=== PATIENT | female | born 1960 | race Caucasian/White ===

== ENCOUNTER → 2017-03-24 | Outpatient (CLI) | payer BC ==
--- NOTE | 2017-03-26 08:55 | MM ---
Reason for exam: screening (asymptomatic). Last mammogram was performed 8 years and 2 months ago. History: Family history of breast cancer in 2 grandmothers. Physical Findings: A clinical breast exam by your physician is recommended on an annual basis and results should be correlated with mammographic findings. MG Screening Mammo w CAD Bilateral CC and MLO view(s) were taken. Prior study comparison: February 03, 2009, bilateral digital screening mammogram. There are scattered fibroglandular densities. No suspicious abnormality. ASSESSMENT: Negative, BI-RAD 1 RECOMMENDATION: Routine screening mammogram of both breasts in 1 year.
== END | disposition home or self-care (01) ==
LOC: RADMAMWWP 13:25
PROVIDERS: ATTEND Family Medicine
DX: Z12.31 Encounter for screening mammogram for malignant neoplasm of breast (principal)

== ENCOUNTER → 2017-05-29 | Outpatient (CLI) | payer BC ==
--- NOTE | 2017-05-29 08:28 | CT ---
EXAMINATION TYPE: CT sinus wo con DATE OF EXAM: 05/29/2017 COMPARISON: 05/28/2013 HISTORY: Atypical facial pain CT DLP: 605.[address] of the paranasal sinuses was performed in the axial and coronal planes. Bone and soft tissue settings are submitted. There is complete opacification of the paranasal sinuses throughout unchanged from prior examination although there is now involvement of the sphenoid sinus. There is thinning of the osseous structures noted. I cannot exclude underlying polyposis. A complete obstruction of the bilateral ostiomeatal uni ts noted. Nasal septum is mildly deviated from left to right. IMPRESSION: Severe pansinusitis as discussed above. Underlying polyposis is not excluded.
== END ==
LOC: RADCTMAIN 07:30
PROVIDERS: ATTEND Family Medicine
DX: J32.4 Chronic pansinusitis (principal)
CPT/HCPCS: 70486

== ENCOUNTER 2017-07-30 08:16 | Day surgery (SDC) | payer BC ==
[2017-07-28 10:02] VITALS: BMI 36.1
[~2017-07-30 08:16] MED LIST: CLINDAMYCIN 600 MG in DEXTROSE 5% IN WATER 50 ML IVPB ONE; DEXAMETHASONE SOD PHOSPHATE 10 MG/ML 1 ML VIAL IV ONE; DEXAMETHASONE SOD PHOSPHATE 4 MG/ML 1 ML VIAL IV ONE; FAMOTIDINE 20 MG/2 ML VIAL IV ONE; LACTATED RINGERS 1,000 ML IV SCH; MORPHINE SULFATE 4 MG/ML SYRINGE IV PRN; ONDANSETRON 4 MG/2 ML VIAL IVP ONE
[2017-07-30 09:35] VITALS: RESP 16
[2017-07-30] MEDS: OXYMETAZOLINE 0.05% NASL SPRAY 1 SPRAY BOTTLE NASAL ONE ×3 (09:45→09:55)
[2017-07-30] MEDS ORDERED: LIDOCAINE 1% 20 ML VIAL (10MG/ML) FOR IV START INTRADERMA ONE (09:57)
[2017-07-30 10:05] LABS: Glucose,Whole Blood 114 mg/dL (75-99)
[2017-07-30] MEDS ORDERED: LIDOCAINE 1% INJ 10MG/ML (20 ML MDV) ONE (10:08)
[2017-07-30] MEDS ORDERED: NEOSTIGMINE 1 MG/ML 10 ML VIAL ONE (10:08)
[2017-07-30] MEDS ORDERED: GLYCOPYRROLATE 0.2 MG/ML 2 ML VIAL ONE (10:08)
[2017-07-30] MEDS ORDERED: PROPOFOL 10 MG/ML 20 ML VIAL IV ONE (10:08)
[2017-07-30] MEDS ORDERED: DEXAMETHASONE SOD PHOS (MDV) 100 MG/10 ML VIAL ONE (10:08)
[2017-07-30] MEDS ORDERED: ROCURONIUM BROMIDE 10 MG/ML 10 ML VIAL IV ONE (10:08)
[2017-07-30] MEDS ORDERED: fentaNYL (PF) 50 MCG/ML 2 ML AMP ONE (10:08)
[2017-07-30] MEDS ORDERED: MIDAZOLAM 2 MG/2 ML VIAL ONE (10:08)
[2017-07-30] MEDS ORDERED: CLINDAMYCIN 150 MG/ML 4 ML VIAL IVPB ONE (10:24)
[2017-07-30] MEDS ORDERED: LIDOCAINE 1%-EPI 1:100,000 20 ML VIAL SUBMUCOSAL ONE (10:34)
[2017-07-30] MEDS ORDERED: OXYMETAZOLINE 0.05% NASL SPRAY 1 SPRAY BOTTLE MISCELLANE ONE (10:51)
--- NOTE | 2017-07-30 11:24 | P.OP ---
Date of Procedure: 07/30/17 Preoperative Diagnosis: Deviated nasal septum Inferior turbinate hypertrophy Chronic sinusitis Sinonasal polyposis Postoperative Diagnosis: Same Procedure(s) Performed: Septoplasty Outfracture and submucous resection inferior turbinates Bilateral endoscopic sinus surgery with polypectomy including bilateral maxillary antrostomy with removal of tissue from the maxillary sinuses, bilateral anterior and posterior ethmoidectomy, bilateral frontal and sphenoid sinusotomy with removal of tissue from the frontal and sphenoid sinuses Anesthesia: OTTONIEL Surgeon: Darren Benjamin Estimated Blood Loss (ml): 20 Pathology: other (Nasal septal bone and cartilage and sinus contents) Condition: stable Disposition: PACU Indications for Procedure: This is a 56-year-old white female with chronic nasal airway obstruction and congestion as well as chronic sinusitis. She has notable deviated nasal septum and inferior turbinate hypertrophy and sinonasal polyps on physical exam as well as chronic pansinusitis on computed tomography scan. Operative Findings: Nasal septum deviated to the right, inferior turbinate hypertrophy bilaterally, sinonasal polyps mainly in the middle meatus but also throughout the ethmoid sinuses and maxillary sinuses. Also smaller polyps in the sphenoid and frontal sinuses. There was also some purulence in the maxillary sinuses bilaterally Description of Procedure: The patient was brought in the operative suite and placed in a supine position. The patient underwent induction of general anesthesia with oral endotracheal intubation without difficulty. The patient was prepped and draped in usual aseptic fashion with the orbits in the operating field for monitoring throughout the case and the computed tomography scan on the computer screen throughout the case for review. 1% lidocaine with 1 100,000 epinephrine was infused submucosally both sides nasal septum as well as lateral nasal wall bilaterally and within the polyps themselves. While this was taking vasoconstrictive effect the inferior turbinates were infractured with the Mcmullen elevator partial submucous resection of inferior turbinates was performed with Coblation wand thus ablating a portion of the submucosal soft tissue. These were then outfractured with the Mcmullen elevator. A left hemitransfixion incision was then made with the mucoperichondrial and mucoperiosteal flaps. The bony cartilaginous junction was disarticulated and the mucoperiosteal flap on the right was elevated. Bony nasal septal deformities were removed Chelsy forceps. An inferior cartilaginous strip was removed leaving a full 1.5 cm caudal strut. Checking intranasally this corrected the nasoseptal deformities and the hemitransfixion incision was closed with a running 4-0 chromic suture. Full 0 endoscopic examination was performed bilaterally. There were quite large polyps bilaterally with inflammation. Beginning on the left the polyps were debrided from the nasal cavities and middle meatus with the microdebrider. There was quite a lot of oozing with this possibly her history of Plavix use although she was apparently off of this for 1 week. The polyps were debrided and maxillary ostium was located with a ballpoint probe. Infundibulotomy was performed followed by uncinectomy. There was some mild purulence as well as small polyps in the middle meatus bilaterally they were removed with curved suctioning and giraffe forceps. Anterior and posterior ethmoidectomy was performed with microdebrider. Due to the oozing some small polyps were left due to decreased visualization. Frontal and sphenoid osteotomies were able to be performed with removal of small polyps also. Standard nasal pore nasal dressing was then placed immediately. Attention was then turned to the right where the procedures were followed as they were on the left including infundibulotomy uncinectomy and maxillary antrostomy with removal of tissue from the maxillary sinuses anterior posterior ethmoidectomy with polypectomy and frontal and sphenoid sinusotomy with removal of tissue and exploration. Again standard nasal pore nasal dressing was placed. Firm nasal pore nasal dressing was then placed in the nasal cavities bilaterally for septal stenting and hemostasis. Good hemostasis was noted at this point. The patient was then allowed to emerge from general anesthesia having tolerated procedure well was extubated in the operating suite and transferred to postop recovery area in satisfactory condition.
[2017-07-30 11:33] VITALS: TEMP 97
[2017-07-30] MEDS: fentaNYL (PF) 50 MCG/ML 2 ML AMP IVP ONE ×2 (11:55→12:00)
[2017-07-30 13:33] VITALS: BP 147/71; PULSE 61
== END 2017-07-30 13:41 | disposition home or self-care (01) ==
LOC: OR 08:16
PROVIDERS: ATTEND Otolaryngology
DX: J34.2 Deviated nasal septum (principal); J34.3 Hypertrophy of nasal turbinates; J32.4 Chronic pansinusitis; J33.8 Other polyp of sinus; K21.9 Gastro-esophageal reflux disease without esophagitis; E78.00 Pure hypercholesterolemia, unspecified; E78.2 Mixed hyperlipidemia; I10 Essential (primary) hypertension; G83.9 Paralytic syndrome, unspecified; E03.9 Hypothyroidism, unspecified; Z86.73 Personal history of transient ischemic attack (TIA), and cerebral infarction without residual deficits; F17.210 Nicotine dependence, cigarettes, uncomplicated; E66.9 Obesity, unspecified; Z68.36 Body mass index [BMI] 36.0-36.9, adult; I65.22 Occlusion and stenosis of left carotid artery; G89.29 Other chronic pain; M54.5 Low back pain; I78.1 Nevus, non-neoplastic; Z79.82 Long term (current) use of aspirin; Z79.2 Long term (current) use of antibiotics; Z79.02 Long term (current) use of antithrombotics/antiplatelets; Z79.1 Long term (current) use of non-steroidal anti-inflammatories (NSAID); Z88.5 Allergy status to narcotic agent; Z79.891 Long term (current) use of opiate analgesic; Z79.51 Long term (current) use of inhaled steroids; Z79.52 Long term (current) use of systemic steroids; Z79.899 Other long term (current) drug therapy; Z88.0 Allergy status to penicillin; Z88.2 Allergy status to sulfonamides
CPT/HCPCS: 88305; 88300; 30520; 30140; 31267; 31253; 31259; J2250; J1100 ×2; J2710; J2405; J2001; J3010; J2704

== ENCOUNTER → 2018-08-17 | Outpatient (CLI) | payer BC ==
--- NOTE | 2018-08-17 15:25 | XR ---
EXAMINATION TYPE: XR foot complete LT DATE OF EXAM: 08/17/2018 COMPARISON: NONE HISTORY: 57 year-old female left foot pain TECHNIQUE: 3 views FINDINGS: Mild degenerative change at the first MTP joint. No acute fracture, subluxation, or dislocation seen small plantar calcaneal spur. IMPRESSION: Mild first MTP joint OA and small plantar calcaneal spur. No acute osseous abnormality seen.
== END | disposition home or self-care (01) ==
LOC: RADXRYALE 10:18
PROVIDERS: ATTEND Family Medicine
DX: M19.072 Primary osteoarthritis, left ankle and foot (principal); M77.32 Calcaneal spur, left foot

== ENCOUNTER 2019-07-13 21:48 | Emergency (ER) | payer BC ==
[2019-07-13 22:18] VITALS: TEMP 98
--- NOTE | 2019-07-13 23:13 | ED ---
Abdominal Pain HPI - General Chief Complaint: Abdominal Pain Stated Complaint: L Side Back/Abd Pain Time Seen by Provider: 07/13/19 22:46 Source: patient Mode of arrival: ambulatory Limitations: no limitations - History of Present Illness Complaint: abdominal pain Onset/Timin -: days(s) Location: diffuse Radiation: L flank Migration to: no migration Severity: moderate Quality: aching Consistency: constant Improves With: nothing Worsens With: nothing Associated Symptoms: denies other symptoms - Related Data Home Medications Medication Instructions Recorded Confirmed Allopurinol [Zyloprim] 100 mg PO DAILY 07/28/17 07/30/17 Aspirin [Adult Low Dose Aspirin EC] 81 mg PO DAILY 07/28/17 07/28/17 Clopidogrel [Plavix] 75 mg PO DAILY 07/28/17 07/28/17 Eye Drop 1 drop RIGHT EYE DAILY 07/28/17 07/30/17 Gabapentin [Neurontin] 1,200 mg PO TID 07/28/17 07/30/17 Levothyroxine Sodium [Synthroid] 150 mcg PO QAM 07/28/17 07/28/17 Nadolol [Corgard] 20 mg PO BID 07/28/17 07/28/17 Potassium ( 20 meq PO DAILY 07/28/17 07/30/17 Simvastatin 80 mg PO DAILY 07/28/17 07/30/17 Torsemide [Demadex] 20 mg PO TID 07/28/17 07/30/17 hydrOXYzine HCL 12.5 - 25 mg PO BID PRN 07/28/17 07/30/17 oxyCODONE-APAP 10-325MG [Percocet 1 - 2 tab PO Q4-6H PRN 07/28/17 07/28/17 10-325 mg] predniSONE [Deltasone] 20 mg PO DAILY 07/28/17 07/28/17 Previous Rx's Medication Instructions Recorded Levofloxacin 750 mg PO DAILY 3 Days #5 tab 07/14/19 Allergies Allergy/AdvReac Type Severity Reaction Status Date / Time banana Allergy Rash/Hives Verified 07/13/19 22:18 codeine Allergy Swelling Verified 07/13/19 22:18 Penicillins Allergy Swelling Verified 07/13/19 22:18 Sulfa (Sulfonamide Allergy Swelling Verified 07/13/19 22:18 Antibiotics) Review of Systems ROS Statement: Those systems with pertinent positive or pertinent negative responses have been documented in the HPI. ROS Other: All systems not noted in ROS Statement are negative. 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 States cannot raise left arm above her head. "Right eye does not shut and is always dry and getting infected, left ear feels plugged up right now." Current problems with nasal stuffiness. History of Any Multi-Drug Resistant Organisms: None Reported Past Surgical History: Section, Tonsillectomy Additional Past Surgical History / Comment(s): Biopsy of brain, neck fusion, D&C, Exploratory Lap X2, multiple right eye surgeries. Additional Past Anesthesia/Blood Transfusion Reaction / Comment(s): Mucous plug in recovery X1, woke up with difficulty breathing. Past Psychological History: Anxiety, Depression Smoking Status: Current every day smoker Past Alcohol Use History: None Reported Past Drug Use History: None Reported - Past Family History Father Family Medical History: Cancer Additional Family Medical History / Comment(s): Lung cancer General Exam Limitations: no limitations Course Vital Signs 07/13/19 22:14 Temperature 98.0 F Pulse Rate 106 H Respiratory 20 Rate Blood Pressure 143/88 O2 Sat by Pulse 98 Oximetry Medical Decision Making - Lab Data Result diagrams: 07/13/19 23:32 07/13/19 23:32 Lab Results 07/13/19 07/13/19 07/13/19 Range/Units 23:30 23:32 23:32 WBC 16.1 H (3.8-10.6) k/uL RBC 4.89 (3.80-5.40) m/uL Hgb 15.5 (11.4-16.0) gm/dL Hct 46.4 H (34.0-46.0) % MCV 95.0 (80.0-100.0) fL MCH 31.7 (25.0-35.0) pg MCHC 33.4 (31.0-37.0) g/dL RDW 12.7 (11.5-15.5) % Plt Count 486 H (150-450) k/uL Neutrophils % 69 % Lymphocytes % 23 % Monocytes % 3 % Eosinophils % 2 % Basophils % 1 % Neutrophils # 11.1 H (1.3-7.7) k/uL Lymphocytes # 3.8 (1.0-4.8) k/uL Monocytes # 0.6 (0-1.0) k/uL Eosinophils # 0.4 (0-0.7) k/uL Basophils # 0.1 (0-0.2) k/uL Sodium 136 L (137-145) mmol/L Potassium 4.0 (3.5-5.1) mmol/L Chloride 94 L (98-107) mmol/L Carbon Dioxide 34 H (22-30) mmol/L Anion Gap 8 mmol/L BUN 20 H (7-17) mg/dL Creatinine 0.63 (0.52-1.04) mg/dL Est GFR (CKD-EPI)AfAm >90 (>60 ml/min/1.73 sqM) Est GFR (CKD-EPI)NonAf >90 (>60 ml/min/1.73 sqM) Glucose 116 H (74-99) mg/dL Plasma Lactic Acid Luke (0.7-2.0) mmol/L Calcium 9.7 (8.4-10.2) mg/dL Magnesium 1.9 (1.6-2.3) mg/dL Total Bilirubin 0.5 (0.2-1.3) mg/dL AST 23 (14-36) U/L ALT 16 (4-34) U/L Alkaline Phosphatase 102 (38-126) U/L Troponin I (0.000-0.034) ng/mL Total Protein 7.8 (6.3-8.2) g/dL Albumin 4.6 (3.5-5.0) g/dL Urine Color Yellow Urine Appearance Cloudy H (Clear) Urine pH 6.0 (5.0-8.0) Ur Specific Ross 1.023 (1.001-1.035) Urine Protein Trace H (Negative) Urine Glucose (UA) Negative (Negative) Urine Ketones Negative (Negative) Urine Blood Negative (Negative) Urine Nitrite Negative (Negative) Urine Bilirubin Negative (Negative) Urine Urobilinogen <2.0 (<2.0) mg/dL Ur Leukocyte Esterase Moderate H (Negative) Urine RBC 1 (0-5) /hpf Urine WBC 17 H (0-5) /hpf Ur Squamous Epith Cells 30 H (0-4) /hpf Urine Bacteria Moderate H (None) /hpf Urine Mucus Few H (None) /hpf 07/13/19 07/13/19 Range/Units 23:32 23:32 WBC (3.8-10.6) k/uL RBC (3.80-5.40) m/uL Hgb (11.4-16.0) gm/dL Hct (34.0-46.0) % MCV (80.0-100.0) fL MCH (25.0-35.0) pg MCHC (31.0-37.0) g/dL RDW (11.5-15.5) % Plt Count (150-450) k/uL Neutrophils % % Lymphocytes % % Monocytes % % Eosinophils % % Basophils % % Neutrophils # (1.3-7.7) k/uL Lymphocytes # (1.0-4.8) k/uL Monocytes # (0-1.0) k/uL Eosinophils # (0-0.7) k/uL Basophils # (0-0.2) k/uL Sodium (137-145) mmol/L Potassium (3.5-5.1) mmol/L Chloride (98-107) mmol/L Carbon Dioxide (22-30) mmol/L Anion Gap mmol/L BUN (7-17) mg/dL Creatinine (0.52-1.04) mg/dL Est GFR (CKD-EPI)AfAm (>60 ml/min/1.73 sqM) Est GFR (CKD-EPI)NonAf (>60 ml/min/1.73 sqM) Glucose (74-99) mg/dL Plasma Lactic Acid Luke 1.0 (0.7-2.0) mmol/L Calcium (8.4-10.2) mg/dL Magnesium (1.6-2.3) mg/dL Total Bilirubin (0.2-1.3) mg/dL AST (14-36) U/L ALT (4-34) U/L Alkaline Phosphatase (38-126) U/L Troponin I <0.012 (0.000-0.034) ng/mL Total Protein (6.3-8.2) g/dL Albumin (3.5-5.0) g/dL Urine Color Urine Appearance (Clear) Urine pH (5.0-8.0) Ur Specific Ross (1.001-1.035) Urine Protein (Negative) Urine Glucose (UA) (Negative) Urine Ketones (Negative) Urine Blood (Negative) Urine Nitrite (Negative) Urine Bilirubin (Negative) Urine Urobilinogen (<2.0) mg/dL Ur Leukocyte Esterase (Negative) Urine RBC (0-5) /hpf Urine WBC (0-5) /hpf Ur Squamous Epith Cells (0-4) /hpf Urine Bacteria (None) /hpf Urine Mucus (None) /hpf Disposition Clinical Impression: Urinary tract infection Disposition: HOME SELF-CARE Condition: Good Instructions (If sedation given, give patient instructions): Urinary Tract Infection in Women (ED) Prescriptions: Levofloxacin 750 mg PO DAILY 3 Days #5 tab Is patient prescribed a controlled substance at d/c from ED?: No Referrals: Jf Cruz DO [Primary Care Provider] - 1-2 days
[2019-07-13 23:43] LABS: Basophils # (A) 0.1 k/uL (0-0.2); Basophils % (A) 1 %; Eosinophils # (A) 0.4 k/uL (0-0.7); Eosinophils % (A) 2 %; HCT 46.4 % (34.0-46.0); HGB 15.5 gm/dL (11.4-16.0); Lymphocytes # (A) 3.8 k/uL (1.0-4.8); Lymphocytes % (A) 23 %; MCH 31.7 pg (25.0-35.0); MCHC 33.4 g/dL (31.0-37.0); Mean Platelet Volume 6.6; Monocytes # (A) 0.6 k/uL (0-1.0); Monocytes % (A) 3 %; Neutrophils # (A) 11.1 k/uL (1.3-7.7); Neutrophils % (A) 69 %; Platelet Count 486 k/uL (150-450); RBC 4.89 m/uL (3.80-5.40); RDW 12.7 % (11.5-15.5); WBC 16.1 k/uL (3.8-10.6)
[2019-07-13 23:48] LABS: Appearance,Urine Cloudy (Clear); Bacteria,Urine Moderate /hpf; Bilirubin,Urine Negative (Negative); Blood,Urine Negative (Negative); Color,Urine Yellow; Glucose,Urine (UA) Negative (Negative); Ketones,Urine Negative (Negative); Leukocyte Esterase,Urine Moderate (Negative); Mucus,Urine Few /hpf; Nitrite,Urine Negative (Negative); Protein,Urine Trace (Negative); RBC,Urine 1 /hpf (0-5); Specific Gravity,Urine 1.023 (1.001-1.035); Squamous Epithelial Cell,Urine 30 /hpf (0-4); Urobilinogen,Urine <2.0 mg/dL (<2.0); WBC,Urine 17 /hpf (0-5)
[2019-07-13 23:52] LABS: ALT 16 U/L (4-34); AST 23 U/L (14-36); African American GFR (CKD) >90 (>60 ml/min/1.73 sqM); Albumin 4.6 g/dL (3.5-5.0); Alkaline Phosphatase 102 U/L (38-126); Anion Gap 8 mmol/L; Blood Urea Nitrogen 20 mg/dL (7-17); Calcium 9.7 mg/dL (8.4-10.2); Carbon Dioxide 34 mmol/L (22-30); Chloride 94 mmol/L (98-107); Glucose 116 mg/dL (74-99); Magnesium 1.9 mg/dL (1.6-2.3); Non-African American GFR(CKD) >90 (>60 ml/min/1.73 sqM); Sodium 136 mmol/L (137-145); Total Bilirubin 0.5 mg/dL (0.2-1.3); Total Protein 7.8 g/dL (6.3-8.2)
[2019-07-14] MEDS ORDERED: LEVOFLOXACIN 750 MG TAB PO STA (00:20)
--- NOTE | 2019-07-14 00:22 | XR ---
EXAMINATION TYPE: XR chest 2V DATE OF EXAM: 07/13/2019 COMPARISON: 03/09/2013 HISTORY: Left side back pain TECHNIQUE: 2 views FINDINGS: There is no heart failure nor confluent pneumonic infiltrate. Costophrenic angles are clear . There is cervical spine fusion surgery. Bony thorax is intact. IMPRESSION: No active cardiopulmonary disease. No change.
[2019-07-14] MEDS ORDERED: ALBUTEROL NEBULIZED 2.5 MG/3 ML INHALATION STA (00:54)
[2019-07-14 00:57] VITALS: BP 105/82; RESP 16
[2019-07-14 01:20] VITALS: PULSE 67
== END 2019-07-14 02:15 | disposition home or self-care (01) ==
LOC: EC 21:48
DX: N39.0 Urinary tract infection, site not specified (principal); I10 Essential (primary) hypertension; E78.5 Hyperlipidemia, unspecified; E07.9 Disorder of thyroid, unspecified; F17.200 Nicotine dependence, unspecified, uncomplicated; Z79.82 Long term (current) use of aspirin; Z79.02 Long term (current) use of antithrombotics/antiplatelets; Z79.890 Hormone replacement therapy; Z79.899 Other long term (current) drug therapy; Z79.51 Long term (current) use of inhaled steroids; Z88.0 Allergy status to penicillin; Z88.2 Allergy status to sulfonamides; Z88.5 Allergy status to narcotic agent; Z91.018 Allergy to other foods; Z98.1 Arthrodesis status
CPT/HCPCS: 36415; 71046; 80053; 81001; 83605; 83735; 84484; 85025; 85379; 94640; 99284

== ENCOUNTER → 2019-10-19 | Outpatient (CLI) | payer BC ==
--- NOTE | 2019-10-19 14:40 | CT ---
EXAMINATION TYPE: CT sinus wo con DATE OF EXAM: 10/19/2019 COMPARISON: 05/29/2017 HISTORY: continued chronic sinusitis post sinus surgery [address] DLP: 686.3 mGycm CONTRAST: 0 mL of Isovue 300 The paranasal sinuses are examined in the axial plane at 2 mm thick sections. Reconstructed images i n the coronal plane were obtained. There is dental amalgam scatter artifact There is complete opacification of the maxillary sinuses, ethmoid air cells, frontal sinuses, sphenoi d sinuses and opacification of the superior nasal passages. Correlate for pansinusitis and nasal poly posis. The septum is evaluated. There is septal deviation to the right. Ostiomeatal units are obstructed bilaterally. No expansion or erosion of the paranasal sinuses evident. There may be some wall thickening of the sp henoid sinuses. Mastoid air cells are clear. External auditory canals and middle ears are clear. IMPRESSIONS: 1. Stable appearance of nasal polyposis or pansinusitis.
== END | disposition home or self-care (01) ==
LOC: RADCTMAIN 14:17
PROVIDERS: ATTEND Family Medicine
DX: J32.4 Chronic pansinusitis (principal)
CPT/HCPCS: 70486

== ENCOUNTER → 2019-11-02 | Outpatient (CLI) | payer BC ==
--- NOTE | 2019-11-02 09:40 | US ---
EXAMINATION TYPE: US venous doppler duplex LE DATE OF EXAM: 11/02/2019 8:46 AM COMPARISON: US 2014 CLINICAL HISTORY: M79.605 Pain in left leg, M79.672 Pain L foot,I73.89. Left leg discomfort, patient on blood thinners SIDE PERFORMED: Left TECHNIQUE: The lower extremity deep venous system is examined utilizing real time linear array sonog barbara with graded compression, doppler sonography and color-flow sonography. VESSELS IMAGED: External Iliac Vein (EIV) Common Femoral Vein Deep Femoral Vein Greater Saphenous Vein * Femoral Vein Popliteal Vein Small Saphenous Vein * Proximal Calf Veins (* superficial vessels) Left Leg: Appears negative for DVT Left popliteal fossa: 5.6 x 1.5 x 3.4cm bakers cyst IMPRESSION: No evidence for DVT.
== END | disposition home or self-care (01) ==
LOC: RADUSWWP 08:14
PROVIDERS: ATTEND Family Medicine
DX: M79.605 Pain in left leg (principal); M79.672 Pain in left foot; I73.89 Other specified peripheral vascular diseases

== ENCOUNTER → 2019-11-17 | Outpatient (CLI) | payer BC ==
--- NOTE | 2019-11-24 12:16 | P.ARTDOP ---
Arterial Doppler LOWER EXTREMITY ARTERIAL DOPPLER: DATE OF SERVICE: 11/17/2019 Reason for study: Bilateral leg pain. Doppler waveforms: Atypical bilaterally throughout. Pulse volume recording: Toe waveforms are excellent. Pressure gradients: Above the low thigh bilaterally. Ankle-brachial indices: 0.83 on the right and 0.77 on the left. Toe brachial indices: 0.66 on the right, 0.49 on the left Impression: Suspect mild bilateral fem-pop disease. Cannot exclude iliac component. Toe waveforms suggest excellent flow however..
== END | disposition home or self-care (01) ==
LOC: RADUSWWP 15:29
PROVIDERS: ATTEND Family Medicine
DX: M79.605 Pain in left leg (principal); M79.672 Pain in left foot; I73.89 Other specified peripheral vascular diseases
CPT/HCPCS: 93922; 93923

== ENCOUNTER → 2021-05-22 | Outpatient (CLI) | payer MEDICARE ==
--- NOTE | 2021-05-22 17:55 | XR ---
EXAMINATION TYPE: XR chest 2V DATE OF EXAM: 05/22/2021 COMPARISON: Chest x-ray July 13, 2019 HISTORY: Shortness of breath and bronchitis. TECHNIQUE: Frontal and lateral views of the chest are obtained. FINDINGS: Low lung volumes redemonstrated. There is no suspicious new focal air space opacity, pleur al effusion, or pneumothorax seen. The cardiac silhouette size remains enlarged. Surgical changes in the cervical spine is redemonstrated. IMPRESSION: Cardiomegaly and low lung volumes without new acute infiltrate.
== END | disposition home or self-care (01) ==
LOC: RADXRYALE 15:30
PROVIDERS: ATTEND Family Medicine
DX: R06.02 Shortness of breath (principal); J20.8 Acute bronchitis due to other specified organisms
CPT/HCPCS: 71046

== ENCOUNTER → 2021-07-04 | Outpatient (CLI) | payer MEDICARE, OTHER ==
--- NOTE | 2021-07-04 10:02 | CT ---
EXAMINATION TYPE: CT sinus wo con DATE OF EXAM: 07/04/2021 COMPARISON: CT dated 10/19/2019 HISTORY: Chronic sinusitis CT DLP: 622.3 mGycm. Automated Exposure Control for Dose Reduction was Utilized. TECHNIQUE: CT scan of the sinuses is performed without contrast, axial images are obtained, coronal r eformatted images are also reviewed. FINDINGS: Complete obliteration of the nasal fossa bilaterally and superiorly by mucosal thickening, possibly p olypoidal. Minimal deviation of the inferior aspect of the bony nasal septum convex to the right side . The septum is intact with no evidence of perforation. Suboptimal assessment of the middle turbinate s due to mucosal thickening and bone resorption likely related to chronic inflammatory changes. Wide infundibulum bilaterally, completely obstructed by mucosal thickening with significant mucosal t hickening of the ostiomeatal complexes. Severe circumferential mucosal thickening of the maxillary si nuses with hyperdense material centrally which could be related to inspissated secretions however und erlying fungal infection cannot be excluded. Thick sclerotic chapman of the maxillary sinuses, denoting chronic inflammatory changes. Similar changes are also seen involving the ethmoid air cells, frontal sinus and to a lesser extent o f the sphenoid sinus, demonstrating almost complete obliteration, significant mucosal thickening, andrea tral hyperdensity and thick sclerotic chapman, the latter is most evident seen in the sphenoid sinus. O bstructed sphenoethmoidal recesses by mucosal thickening. Clear mastoid air cells. Osteopenia. Right eye prosthesis, appreciated previously. Unremarkable orbit s otherwise. Suspected the right caudate nucleus lacunar infarct with generalized brain volume loss c hanges, slightly more than expected for the patient's age. IMPRESSION: Persistent extensive severe pansinusitis with possible associated sinonasal polyposis as detailed abo ve. Associated fungal infection should be ruled out. Other incidental findings as described above.
== END | disposition home or self-care (01) ==
LOC: RADCTMAIN 09:31
PROVIDERS: ATTEND Otolaryngology
DX: J32.9 Chronic sinusitis, unspecified (principal)
CPT/HCPCS: 70486

== ENCOUNTER 2021-08-29 09:08 | Day surgery (SDC) | payer MEDICARE, OTHER ==
[2021-08-27 14:42] VITALS: BMI 36.1
[~2021-08-29 09:08] MED LIST changes: -CLINDAMYCIN 600 MG in DEXTROSE 5% IN WATER 50 ML IVPB ONE; -DEXAMETHASONE SOD PHOSPHATE 10 MG/ML 1 ML VIAL IV ONE; -DEXAMETHASONE SOD PHOSPHATE 4 MG/ML 1 ML VIAL IV ONE; -FAMOTIDINE 20 MG/2 ML VIAL IV ONE; +FAMOTIDINE 20 MG/2 ML VIAL IV PRN; +LIDOCAINE 1% (10MG/ML) FOR IV START INTRADERMA PRN; -MORPHINE SULFATE 4 MG/ML SYRINGE IV PRN; +fentaNYL (PF) 50 MCG/ML 2 ML AMP IV PRN
[2021-08-29] MEDS ORDERED: OXYMETAZOLINE 0.05% NASL SPRAY 1 SPRAY BOTTLE ONE (09:56)
[2021-08-29] MEDS ORDERED: OXYMETAZOLINE 0.05% NASL SPRAY 1 SPRAY BOTTLE NASAL ONE (10:04)
[2021-08-29] MEDS ORDERED: OXYMETAZOLINE 0.05% NASL SPRAY 1 SPRAY BOTTLE NASAL STA (10:07)
[2021-08-29] MEDS ORDERED: CLINDAMYCIN 600 MG in DEXTROSE 5% IN WATER 50 ML IVPB ONE ×2 (10:08)
[2021-08-29] MEDS ORDERED: ONDANSETRON 4 MG/2 ML VIAL ONE (10:24)
[2021-08-29] MEDS ORDERED: hydrALAZINE HCL 20 MG/ML 1 ML VIAL IVP ONE (10:34)
[2021-08-29 10:39] VITALS: RESP 16
[2021-08-29] MEDS ORDERED: DEXAMETHASONE SOD PHOSPHATE 4 MG/ML 1 ML VIAL IVP ONE (10:43)
[2021-08-29 10:49] LABS: Glucose,Whole Blood 94 mg/dL (75-99)
[2021-08-29] MEDS ORDERED: MIDAZOLAM 2 MG/2 ML VIAL ONE (11:30)
[2021-08-29] MEDS ORDERED: LIDOCAINE 2% INJ 20 MG/ML (2 ML VIAL) ONE (11:30)
[2021-08-29] MEDS ORDERED: SUCCINYLCHOLINE CHLORIDE 100 MG/5 ML SYR IV ONE (11:30)
[2021-08-29] MEDS ORDERED: ePHEDrine 50 MG/ML 1 ML VIAL ONE (11:30)
[2021-08-29] MEDS ORDERED: DEXAMETHASONE SOD PHOSPHATE 10 MG/ML 1 ML VIAL ONE (11:30)
[2021-08-29] MEDS ORDERED: PROPOFOL 10 MG/ML 20 ML VIAL IV ONE (11:30)
[2021-08-29] MEDS ORDERED: fentaNYL (PF) 50 MCG/ML 2 ML AMP ONE (11:30)
[2021-08-29] MEDS ORDERED: LIDOCAINE 1%-EPI 1:100,000 20 ML VIAL SUBMUCOSAL ONE (11:47)
[2021-08-29] MEDS ORDERED: OXYMETAZOLINE 0.05% NASL SPRAY 1 SPRAY BOTTLE MISCELLANE ONE (12:02)
--- NOTE | 2021-08-29 12:34 | P.OP ---
Date of Procedure: 08/29/21 Preoperative Diagnosis: Chronic sinusitis Sinonasal polyposis Postoperative Diagnosis: same Procedure(s) Performed: Bilateral endoscopic sinus surgery including bilateral maxillary antrostomy with removal of tissue from the maxillary sinuses bilateral anterior and posterior ethmoidectomy bilateral frontal sinusotomy sinuses and bilateral sphenoidotomy with removal of tissue from the sphenoid sinuses Anesthesia: OTTONIEL Surgeon: Darren Benjamin Estimated Blood Loss (ml): 10 Pathology: other (Sinus contents) Condition: stable Disposition: PACU Indications for Procedure: Is a 60-year-old white female who has recurrent sinonasal polyps. She had septoplasty and endoscopic sinus surgery with polypectomy previously with recurrent polyps Operative Findings: Diffuse sinonasal polyposis involving the middle meatus, maxillary sinus ethmoid sinuses sphenoid and frontal sinuses Description of Procedure: The patient was brought into the operative suite and placed in a supine position. The patient underwent induction of general anesthesia with oral endotracheal intubation without difficulty. The patient was prepped and draped in the usual aseptic fashion with the orbits in the operating field for monitoring to the case and the computed tomography scan was on the computer screen for review throughout the case. 1% lidocaine with 1 :100,000 epinephrine was infused submucosally into the polyps themselves as well as the lateral nasal wall bilateral Full 0 endoscopic examination is performed bilaterally. Beginning on the left, the middle turbinate was medialized. The maxillary ostium was located with a ballpoint probe and an infundibulotomy was performed followed by uncinectomy. The maxillary antrostomy was enlarged at the expense of the anterior and posterior fontanelle taking care anteriorly not to injure the lac rimal bone. The maxillary sinus was evaluated with 30 and 70 endoscope .[Abnormal appearing tissue was removed from the maxillary sinus]. Anterior and posterior ethmoidectomy were then performed from anterior to posterior to the level of the skull base. The roof of the anterior ethmoid air cells were then cleaned from posterior to anterior using up-biting Blakesley forceps. Frontal sinusotomy was performed with up-biting Blakesley forceps and curved suction and The frontal sinus was then explored with 30 endoscope.[Abnormal tissue was removed from the frontal sinus]. The left sphenoid sinus was opened with straight suction and straight Blakesley forceps and the sphenoid sinus was then explored with 0 endoscope.[Abnormal tissue was removed from the sphenoid sinus]. Attention was then turned to the right where the procedures were followed as they had been on the left. All of the sinuses involved polypectomy and exploration [Nasopore nasal dressing was placed in the middle meatus bilaterally under direct visualization]. The patient was suctioned in oral gastric fashion and was allowed to emerge from general anesthesia having tolerated procedure well and was extubated in the operating suite and transferred to the postoperative recovery area in satisfactory condition.
[2021-08-29 12:50] VITALS: TEMP 96.8
[2021-08-29 14:28] VITALS: BP 133/64; PULSE 60
== END 2021-08-29 14:32 | disposition home or self-care (01) ==
LOC: OR 09:08
PROVIDERS: ATTEND Otolaryngology
DX: J01.90 Acute sinusitis, unspecified (principal); F17.200 Nicotine dependence, unspecified, uncomplicated; E07.9 Disorder of thyroid, unspecified; Z79.899 Other long term (current) drug therapy
CPT/HCPCS: 31253; 31259; 31267; 88305; J2250; J0360; J1100 ×2; J2405; J3010; J0330; J2704; J2001

== ENCOUNTER 2021-09-14 12:38 | Emergency (ER) | payer MEDICARE, OTHER ==
[2021-09-14 12:58] VITALS: TEMP 98.2
[2021-09-14 16:42] LABS: Basophils # (A) 0.1 k/uL (0-0.2); Basophils % (A) 1 %; Eosinophils # (A) 0.2 k/uL (0-0.7); Eosinophils % (A) 3 %; HCT 40.4 % (34.0-46.0); HGB 12.9 gm/dL (11.4-16.0); Lymphocytes # (A) 2.6 k/uL (1.0-4.8); Lymphocytes % (A) 31 %; MCH 31.2 pg (25.0-35.0); MCHC 31.9 g/dL (31.0-37.0); MCV 97.8 fL (80.0-100.0); Mean Platelet Volume 6.9; Monocytes # (A) 0.4 k/uL (0-1.0); Monocytes % (A) 5 %; Neutrophils # (A) 4.9 k/uL (1.3-7.7); Neutrophils % (A) 59 %; Platelet Count 255 k/uL (150-450); RBC 4.13 m/uL (3.80-5.40); WBC 8.4 k/uL (3.8-10.6)
[2021-09-14 17:02] LABS: INR 0.9 (<1.2); Prothrombin Time 10.3 sec (9.0-12.0)
[2021-09-14 17:03] LABS: Appearance,Urine Cloudy (Clear); Bacteria,Urine Rare /hpf; Bilirubin,Urine Negative (Negative); Blood,Urine Small (Negative); Color,Urine Yellow; Glucose,Urine (UA) Negative (Negative); Hyaline Casts,Urine 5 /lpf (0-2); Ketones,Urine Negative (Negative); Leukocyte Esterase,Urine Trace (Negative); Mucus,Urine Many /hpf; Nitrite,Urine Negative (Negative); Protein,Urine Trace (Negative); RBC,Urine 22 /hpf (0-5); Specific Gravity,Urine 1.019 (1.001-1.035); Squamous Epithelial Cell,Urine 7 /hpf (0-4); Urobilinogen,Urine <2.0 mg/dL (<2.0); WBC,Urine 3 /hpf (0-5)
[2021-09-14 17:04] LABS: ALT 29 U/L (4-34); AST 28 U/L (14-36); African American GFR (CKD) >90 (>60 ml/min/1.73 sqM); Albumin 3.7 g/dL (3.5-5.0); Alkaline Phosphatase 66 U/L (38-126); Anion Gap 5 mmol/L; Blood Urea Nitrogen 9 mg/dL (7-17); Calcium 8.5 mg/dL (8.4-10.2); Carbon Dioxide 34 mmol/L (22-30); Chloride 102 mmol/L (98-107); Glucose 94 mg/dL (74-99); Magnesium 1.9 mg/dL (1.6-2.3); Non-African American GFR(CKD) >90 (>60 ml/min/1.73 sqM); Phosphorus 3.8 mg/dL (2.5-4.5); Potassium 3.9 mmol/L (3.5-5.1); Sodium 141 mmol/L (137-145); Total Bilirubin 0.6 mg/dL (0.2-1.3); Total Protein 6.3 g/dL (6.3-8.2)
--- NOTE | 2021-09-14 17:09 | CT ---
EXAMINATION TYPE: CT brain damienine wo con DATE OF EXAM: 09/14/2021 COMPARISON: CT sinuses 3-22 HISTORY: Double vision and unsteady gait. History of brainstem biopsy. CT DLP: 1626.9 mGycm Automated exposure control for dose reduction was used. Images of the brain and cervical spine obtained without contrast. There is some left-sided cerebellar atrophy. There is no mass effect or midline shift. No sign of int racranial hemorrhage. There is extensive mucosal thickening in the maxillary ethmoid sphenoid and frontal sinuses. No focal bone destruction. There is normal aeration of the mastoid sinuses. The cervical vertebra show multilevel anterior fusion surgery from C4 to C7. There is normal alignmen t of the vertebra. No compression fracture. Facet joints are intact. IMPRESSION: No acute abnormality of the cervical spine. Previous surgery. Left side cerebellar hemisphere atrophy. No acute intracranial abnormality. Severe pansinusitis. Sinusitis not significantly different than old exam.
--- NOTE | 2021-09-14 17:12 | XR ---
EXAMINATION TYPE: XR chest 2V DATE OF EXAM: 09/14/2021 COMPARISON: 05/22/2021 HISTORY: Weakness TECHNIQUE: 2 views FINDINGS: Heart is normal. Lungs are clear of infiltrate. No heart failure. There are no hilar masses . There is cervical spine fusion surgery. IMPRESSION: No active cardiopulmonary disease. No change.
--- NOTE | 2021-09-14 17:52 | ED ---
General Adult HPI - General Chief complaint: Dizziness Stated complaint: Weakness/blured vision Time Seen by Provider: 09/14/21 15:39 Source: patient Mode of arrival: ambulatory Limitations: no limitations - History of Present Illness Initial comments: Patient is a 60-year-old female presenting with chief complaint of generalized weakness. Patient states that over the last several days she has "felt like my legs are Jell-O". She states that she attempted to take a shower today at onto the wall and is worried she would fall. Patient states that she has an AVM and has had a previous biopsy of the brain in 2001. 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 She denies any chest pain, shortness of breath, palpitations, fever, chills, nausea, vomiting, abdominal pain, limb pain, diarrhea, hematochezia, hematemesis, cough, URI-like symptoms. - Related Data Home Medications Medication Instructions Recorded Confirmed Aspirin [Adult Low Dose Aspirin EC] 81 mg PO DAILY 07/28/17 08/29/21 Clopidogrel [Plavix] 75 mg PO DAILY 07/28/17 08/29/21 Gabapentin [Neurontin] 1,200 mg PO TID 07/28/17 08/29/21 Levothyroxine Sodium [Synthroid] 150 mcg PO QAM 07/28/17 08/29/21 Torsemide [Demadex] 20 mg PO TID 07/28/17 08/29/21 oxyCODONE-APAP 10-325MG [Percocet 1 - 2 tab PO Q4-6H PRN 07/28/17 08/29/21 10-325 mg] predniSONE [Deltasone] 20 mg PO DAILY 07/28/17 08/29/21 Atorvastatin [Lipitor] 40 mg PO HS 08/27/21 08/29/21 Gabapentin 600 mg PO HS 08/27/21 08/29/21 Potassium Chloride [Klor-Con M20] 20 meq PO DAILY 08/27/21 08/29/21 Nadolol [Corgard] 20 mg PO BID 08/29/21 08/29/21 Allergies Allergy/AdvReac Type Severity Reaction Status Date / Time banana Allergy Rash/Hives Verified 08/29/21 10:13 codeine Allergy Swelling Verified 08/29/21 10:13 Penicillins Allergy Swelling Verified 08/29/21 10:13 Sulfa (Sulfonamide Allergy Swelling Verified 08/29/21 10:13 Antibiotics) Review of Systems ROS Statement: Those systems with pertinent positive or pertinent negative responses have been documented in the HPI. ROS Other: All systems not noted in ROS Statement are negative. 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 States cannot raise left arm above her head. "Right eye does not shut and is always dry and getting infected, left ear feels plugged up right now." Current problems with nasal stuffiness. History of Any Multi-Drug Resistant Organisms: None Reported Past Surgical History: Section, Tonsillectomy Additional Past Surgical History / Comment(s): Biopsy of brain, neck fusion, D&C, Exploratory Lap X2, multiple right eye surgeries. Additional Past Anesthesia/Blood Transfusion Reaction / Comment(s): Mucous plug in recovery X1, woke up with difficulty breathing. Past Psychological History: Anxiety, Depression Smoking Status: Current every day smoker Past Alcohol Use History: None Reported Past Drug Use History: None Reported - Past Family History Father Family Medical History: Cancer Additional Family Medical History / Comment(s): Lung cancer General Exam Limitations: no limitations General appearance: alert, in no apparent distress Head exam: Present: atraumatic, normocephalic, normal inspection Eye exam: Present: normal appearance, EOMI. Absent: scleral icterus Neck exam: Present: normal inspection Respiratory exam: Present: normal lung sounds bilaterally. Absent: respiratory distress, wheezes, rales, rhonchi, stridor Cardiovascular Exam: Present: regular rate, normal rhythm, normal heart sounds. Absent: systolic murmur, diastolic murmur, rubs, gallop, clicks Extremities exam: Present: normal inspection, full ROM, normal capillary refill, pedal edema, other (Pedal and posterior tibial pulses palpated bilaterally) Neurological exam: Present: alert, oriented X3, CN II-XII intact Expanded Cranial nerves: Facial Palsy with Forehead Movement: Normal (forehead movement affected) Eye Response: (4) open spontaneously Motor Response: (6) obeys commands Verbal Response: (5) oriented [place] Total: 15 Psychiatric exam: Present: normal affect, normal mood Skin exam: Present: warm, dry, intact, normal color. Absent: rash Course Vital Signs 09/14/21 09/14/21 12:55 18:28 Temperature 98.2 F Pulse Rate 82 53 L Respiratory 18 16 Rate Blood Pressure 166/73 140/67 O2 Sat by Pulse 98 98 Oximetry EKG Findings - EKG Comments: EKG Findings:: Sinus rhythm with rate of 62. HI interval 162. QRS duration 93. No acute ST or T-wave changes. This EKG was also shown to and interpreted by my attending Dr. Escalante Medical Decision Making - Medical Decision Making Patient is a 60-year-old female presenting with chief complaint of generalized weakness. Patient states that over the last several days it has been incre asingly difficult to stand for prolonged periods of time. Patient states that she has an AVM of the cerebellum as well as previous biopsy of the brainstem, which has resulted in a facial palsy that she has regularly at baseline, patient states that this facial palsy has not changed since the onset of her symptoms. On examination there is right-sided facial palsy involving the forehead, patient confirms that this is her baseline, otherwise no other focal neurological deficits. CT of the brain and C-spine shows no acute intracranial abnormality, chest x-ray is negative. Lab work is negative. I educated the patient on the findings. She is agreeable to discharge with outpatient follow- up at this time. Follow-up with your PCP on Friday. Report back to ER with any worsening symptoms. Educated the patient on return parameters and alarm symptoms. Answered all questions. Patient conveyed verbal understanding and agreed to the plan. I discussed this case with my attending Dr. Escalante. - Lab Data Result diagrams: 09/14/21 16:27 09/14/21 16: Lab Results 09/14/21 09/14/21 09/14/21 Range/Units 16:27 16: 16: WBC 8.4 (3.8-10.6) k/uL RBC 4.13 (3.80-5.40) m/uL Hgb 12.9 (11.4-16.0) gm/dL Hct 40.4 (34.0-46.0) % MCV 97.8 (80.0-100.0) fL MCH 31.2 (25.0-35.0) pg MCHC 31.9 (31.0-37.0) g/dL RDW 13.0 (11.5-15.5) % Plt Count 255 (150-450) k/uL MPV 6.9 Neutrophils % 59 % Lymphocytes % 31 % Monocytes % 5 % Eosinophils % 3 % Basophils % 1 % Neutrophils # 4.9 (1.3-7.7) k/uL Lymphocytes # 2.6 (1.0-4.8) k/uL Monocytes # 0.4 (0-1.0) k/uL Eosinophils # 0.2 (0-0.7) k/uL Basophils # 0.1 (0-0.2) k/uL PT 10.3 (9.0-12.0) sec INR 0.9 (<1.2) Sodium 141 (137-145) mmol/L Potassium 3.9 (3.5-5.1) mmol/L Chloride 102 (98-107) mmol/L Carbon Dioxide 34 H (22-30) mmol/L Anion Gap 5 mmol/L BUN 9 (7-17) mg/dL Creatinine 0.60 (0.52-1.04) mg/dL Est GFR (CKD-EPI)AfAm >90 (>60 ml/min/1.73 sqM) Est GFR (CKD-EPI)NonAf >90 (>60 ml/min/1.73 sqM) Glucose 94 (74-99) mg/dL Plasma Lactic Acid Luke (0.7-2.0) mmol/L Calcium 8.5 (8.4-10.2) mg/dL Phosphorus 3.8 (2.5-4.5) mg/dL Magnesium 1.9 (1.6-2.3) mg/dL Total Bilirubin 0.6 (0.2-1.3) mg/dL AST 28 (14-36) U/L ALT 29 (4-34) U/L Alkaline Phosphatase 66 (38-126) U/L Troponin I (0.000-0.034) ng/mL Total Protein 6.3 (6.3-8.2) g/dL Albumin 3.7 (3.5-5.0) g/dL Urine Color Urine Appearance (Clear) Urine pH (5.0-8.0) Ur Specific [place] (1.001-1.035) Urine Protein (Negative) Urine Glucose (UA) (Negative) Urine Ketones (Negative) Urine Blood (Negative) Urine Nitrite (Negative) Urine Bilirubin (Negative) Urine Urobilinogen (<2.0) mg/dL Ur Leukocyte Esterase (Negative) Urine RBC (0-5) /hpf Urine WBC (0-5) /hpf Ur Squamous Epith Cells (0-4) /hpf Urine Bacteria (None) /hpf Hyaline Casts (0-2) /lpf Urine Mucus (None) /hpf 09/14/21 09/14/21 09/14/21 Range/Units 16:27 16:27 16:30 WBC (3.8-10.6) k/uL RBC (3.80-5.40) m/uL Hgb (11.4-16.0) gm/dL Hct (34.0-46.0) % MCV (80.0-100.0) fL MCH (25.0-35.0) pg MCHC (31.0-37.0) g/dL RDW (11.5-15.5) % Plt Count (150-450) k/uL MPV Neutrophils % % Lymphocytes % % Monocytes % % Eosinophils % % Basophils % % Neutrophils # (1.3-7.7) k/uL Lymphocytes # (1.0-4.8) k/uL Monocytes # (0-1.0) k/uL Eosinophils # (0-0.7) k/uL Basophils # (0-0.2) k/uL PT (9.0-12.0) sec INR (<1.2) Sodium (137-145) mmol/L Potassium (3.5-5.1) mmol/L Chloride (98-107) mmol/L Carbon Dioxide (22-30) mmol/L Anion Gap mmol/L BUN (7-17) mg/dL Creatinine (0.52-1.04) mg/dL Est GFR (CKD-EPI)AfAm (>60 ml/min/1.73 sqM) Est GFR (CKD-EPI)NonAf (>60 ml/min/1.73 sqM) Glucose (74-99) mg/dL Plasma Lactic Acid Luke 0.9 (0.7-2.0) mmol/L Calcium (8.4-10.2) mg/dL Phosphorus (2.5-4.5) mg/dL Magnesium (1.6-2.3) mg/dL Total Bilirubin (0.2-1.3) mg/dL AST (14-36) U/L ALT (4-34) U/L Alkaline Phosphatase (38-126) U/L Troponin I <0.012 (0.000-0.034) ng/mL Total Protein (6.3-8.2) g/dL Albumin (3.5-5.0) g/dL Urine Color Yellow Urine Appearance Cloudy H (Clear) Urine pH 5.0 (5.0-8.0) Ur Specific [place] 1.019 (1.001-1.035) Urine Protein Trace H (Negative) Urine Glucose (UA) Negative (Negative) Urine Ketones Negative (Negative) Urine Blood Small H (Negative) Urine Nitrite Negative (Negative) Urine Bilirubin Negative (Negative) Urine Urobilinogen <2.0 (<2.0) mg/dL Ur Leukocyte Esterase Trace H (Negative) Urine RBC 22 H (0-5) /hpf Urine WBC 3 (0-5) /hpf Ur Squamous Epith Cells 7 H (0-4) /hpf Urine Bacteria Rare H (None) /hpf Hyaline Casts 5 H (0-2) /lpf Urine Mucus Many H (None) /hpf Disposition Clinical Impression: Generalized weakness Disposition: HOME SELF-CARE Condition: Fair Instructions (If sedation given, give patient instructions): Weakness (ED), Dizziness (ED) Additional Instructions: Follow-up with PCP on Friday. Report back to ER if any worsening symptoms. Is patient prescribed a controlled substance at d/c from ED?: No Referrals: Jf Cruz DO [Primary Care Provider] - 1-2 days Time of Disposition: 17:52
[2021-09-14 18:29] VITALS: BP 140/67; PULSE 53; RESP 16
== END 2021-09-14 18:36 | disposition home or self-care (01) ==
LOC: EC 12:38
DX: R53.1 Weakness (principal); I10 Essential (primary) hypertension; Z79.1 Long term (current) use of non-steroidal anti-inflammatories (NSAID); E07.9 Disorder of thyroid, unspecified; Z88.0 Allergy status to penicillin; Z88.6 Allergy status to analgesic agent; Z91.018 Allergy to other foods
CPT/HCPCS: 36415; 70450; 71046; 72125; 80053; 81001; 83605; 83735; 84100; 84484; 85025; 85610; 93005

== ENCOUNTER → 2021-11-07 | Outpatient (CLI) | payer MEDICARE, OTHER ==
--- NOTE | 2021-11-07 15:17 | US ---
EXAMINATION TYPE: US venous doppler duplex LE LT DATE OF EXAM: 11/07/2021 1:51 PM COMPARISON: US November 02, 2019 CLINICAL HISTORY: I80.02 PHLEBITIS AND THOMBOPHLB OF SUPERFICIAL. Pain in left leg. No hx of DVT. Pat ient takes aspirin. SIDE PERFORMED: Left TECHNIQUE: The lower extremity deep venous system is examined utilizing real time linear array sonog barbara with graded compression, doppler sonography and color-flow sonography. VESSELS IMAGED: Common Femoral Vein Deep Femoral Vein Greater Saphenous Vein * Femoral Vein Popliteal Vein Small Saphenous Vein * Proximal Calf Veins (* superficial vessels) Left Leg: No evidence of DVT in veins imaged at this time. Complex area seen medial popliteal area: 4.2 x 2.7 x 0.9 cm. IMPRESSION: No ultrasound evidence for acute DVT in the left lower extremity. Persistent small to mo derate size left-sided popliteal or Perera's cyst noted.
--- NOTE | 2021-11-08 06:46 | US ---
EXAMINATION TYPE: US arterial LE multi level DATE OF EXAM: 11/07/2021 1:53 PM Comparison: Prior study 2019 CLINICAL HISTORY: I80.02 PHLEBITIS AND THOMBOPHLB OF SUPERFICIAL. PVD, pain in left leg per order. Di scoloration within left leg/foot. Current smoker, Hx PVD, rest pain, hypertension, hyperlipidemia, TI A/CVA. Doppler Waveforms: Right: Multiphasic to biphasic Left: Multiphasic to monophasic Pulse Volume Recording: Diminished particularly on the left. Ankle-Brachial Indices: Right: 0.91 Left: 0.82 Toe Brachial Indices: Right: 0.49 Left: 0.44 IMPRESSION: Loss of phasicity is concerning. Normal LUCY values. At least mild peripheral arterial di sease in the bilateral feet.
== END | disposition home or self-care (01) ==
LOC: RADUSWWP 12:12
PROVIDERS: ATTEND Family Medicine
DX: I80.02 Phlebitis and thrombophlebitis of superficial vessels of left lower extremity (principal); M79.662 Pain in left lower leg
CPT/HCPCS: 93923

== ENCOUNTER 2022-04-17 04:58 | Emergency (ER) | payer MEDICARE, OTHER ==
[2022-04-17] MEDS ORDERED: ASPIRIN 81 MG PO STA (07:49)
[2022-04-17 08:00] VITALS: RESP 20; TEMP 98
--- NOTE | 2022-04-17 08:10 | ED ---
General Adult HPI - General Chief complaint: Extremity Problem,Nontraumatic Stated complaint: Leg swelling Time Seen by Provider: 04/17/22 07:38 Source: patient, RN notes reviewed, old records reviewed Mode of arrival: ambulatory Limitations: no limitations - History of Present Illness Initial comments: Patient is a 61-year-old female with past medical history remarkable for dependent edema, chronic facial droop as well as hypertension due to a nonope rable AVM on her brainstem, COPD who presents emergency Department complaining of worsening bilateral lower extremity edema for the last few days. She states she started noticing approximately one week ago and has progressively gotten worse. She does take a water pill at home, torsemide that does not change. This is symmetrical pitting edema in both lower extremities were normally it is just on the left. Associated with this she believes she is having a little bit more swelling in her abdomen as well. Somewhat endorses shortness of breath, however she states she does have chronic COPD. No obvious orthopnea, PND. No history of blood clots but patient does have a history of COVID-19 infection approximately one and half months ago. No recent long-distance travel. No other complaints at this time. Did have some mild chest discomfort earlier today that resolved on its own and lasted a few minutes. Poorly described by the patient. Presents for further evaluation at this time. - Related Data Home Medications Medication Instructions Recorded Confirmed Aspirin [Adult Low Dose Aspirin EC] 81 mg PO DAILY 07/28/17 08/29/21 Clopidogrel [Plavix] 75 mg PO DAILY 07/28/17 08/29/21 Gabapentin [Neurontin] 1,200 mg PO TID 07/28/17 08/29/21 Levothyroxine Sodium [Synthroid] 150 mcg PO QAM 07/28/17 08/29/21 Torsemide [Demadex] 20 mg PO TID 07/28/17 08/29/21 oxyCODONE-APAP 10-325MG [Percocet 1 - 2 tab PO Q4-6H PRN 07/28/17 08/29/21 10-325 mg] predniSONE [Deltasone] 20 mg PO DAILY 07/28/17 08/29/21 Atorvastatin [Lipitor] 40 mg PO HS 08/27/21 08/29/21 Gabapentin 600 mg PO HS 08/27/21 08/29/21 Potassium Chloride [Klor-Con M20] 20 meq PO DAILY 08/27/21 08/29/21 nadoloL [Corgard] 20 mg PO BID 08/29/21 08/29/21 Allergies Allergy/AdvReac Type Severity Reaction Status Date / Time banana Allergy Rash/Hives Verified 04/17/22 05:03 codeine Allergy Swelling Verified 04/17/22 05:03 Penicillins Allergy Swelling Verified 04/17/22 05:03 Sulfa (Sulfonamide Allergy Swelling Verified 04/17/22 05:03 Antibiotics) Review of Systems ROS Statement: Those systems with pertinent positive or pertinent negative responses have been documented in the HPI. Review of Systems: CONST: Denies fever EYES: Denies blurry vision ENT: Denies nasal congestion C/V: Denies Chest pain RESP: Denies shortness of breath GI: Denies abdominal pain : Denies dysuria SKIN: Denies rash. MSK: Endorses lower extremity swelling. NEURO: Denies headache ROS Other: All systems not noted in ROS Statement are negative. 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 States cannot raise left arm above her head. "Right eye does not shut and is always dry and getting infected, left ear feels plugged up right now." Current problems with nasal stuffiness. History of Any Multi-Drug Resistant Organisms: None Reported Past Surgical History: Section, Tonsillectomy Additional Past Surgical History / Comment(s): Biopsy of brain, neck fusion, D&C, Exploratory Lap X2, multiple right eye surgeries. Additional Past Anesthesia/Blood Transfusion Reaction / Comment(s): Mucous plug in recovery X1, woke up with difficulty breathing. Past Psychological History: Anxiety, Depression Smoking Status: Current every day smoker Past Alcohol Use History: None Reported Past Drug Use History: None Reported - Past Family History Father Family Medical History: Cancer Additional Family Medical History / Comment(s): Lung cancer General Exam - General Exam Comments Initial Comments: General: Appears in no acute distress. HEAD: Normal with no signs of head trauma. EYES: PERRLA, EOMI, conjunctiva normal, no discharge. ENT: Hearing grossly intact, normal oropharynx. RESPIRATORY: Clear breath sounds bilaterally. No wheezes, rales, or rhonchi. No hypoxia, no increased work of breathing. C/V: Regular rate and rhythm. S1 and S2 auscultated, bilateral symmetric pitting edema, peripheral pulses 2+ and intact throughout ABD: Abd is soft, nontender, nondistended EXT: Normal range of motion, no obvious deformity SKIN: No rashes or lesions observed on exposed skin. NEURO: Alert and oriented 4. No focal acute deficits. Limitations: no limitations Course Vital Signs 04/17/22 04/17/22 04/17/22 05:00 07:54 09:00 Temperature 97.9 F 98.0 F Pulse Rate 89 53 L 76 Respiratory 18 20 18 Rate Blood Pressure 160/66 161/84 112/66 O2 Sat by Pulse 95 98 95 Oximetry 04/17/22 11:05 Temperature 98.0 F Pulse Rate 59 L Respiratory 20 Rate Blood Pressure 131/50 O2 Sat by Pulse 95 Oximetry Medical Decision Making - Medical Decision Making Based on the patient's presentation and physical exam, I'm concerned for possible cardiopulmonary etiology for the patient's current lower extremity edema. Cannot rule out DVT. Could be chronic worsening of her dependent edema as well. She does have a recent history of COVID-[address] her at increased risk for potential for blood clots. She does endorse some mild shortness of breath as well. Therefore we will obtain a screening d-dimer, bilateral lower extremity duplexes, as well as cardio pulmonary workup including BNP, troponin, basic labs, EKG. She was in agreement this plan. Vital signs within acceptable limits. No respiratory distress. She'll be given 324 mg of aspirin. Patient's EKG shows no signs of acute ischemia. Chest x-ray as interpreted by myself shows no acute cardio primary process. No infiltrate. Venous duplexes were interpreted as showing no evidence of DVT. There is a known left popliteal cyst. Laboratory studies are remarkable for an elevated d-dimer of 0.85. Troponin is undetectable. Remainder the workup is unremarkable. I discussed the findings with the patient. We will obtain a CT angiogram PE to rule out pulmonary embolism. She was in agreement this plan. CT PE is interpreted by myself reveals no evidence of PE. No other findings. On reevaluation, patient's hearing improved. Vital signs remained within acceptable limits. We discussed results. Is likely related to her dependent edema. We did discuss that she can follow-up with her PCP in the next few days, and possibly increase her home diuretic use. She was in agreement this plan. She'll be discharged home at this time. Strict return precautions were discussed. I instructed the patient to follow up with their PCP in the next 1-3 days. I explained that the patient should return to the emergency department if they experience any worsening symptoms. Strict return precautions were discussed with the patient. The patient expressed understanding of these instructions. I answered all questions that the patient had. The patient was discharged home in good condition with their prescriptions and follow up information. - Lab Data Result diagrams: 04/17/22 07:48 04/17/22 07:48 Lab Results 04/17/22 04/17/22 04/17/22 Range/Units 07:48 07:48 07:48 WBC 9.5 (3.8-10.6) k/uL RBC 4.17 (3.80-5.40) m/uL Hgb 13.1 (11.4-16.0) gm/dL Hct 39.7 (34.0-46.0) % MCV 95.4 (80.0-100.0) fL MCH 31.5 (25.0-35.0) pg MCHC 33.0 (31.0-37.0) g/dL RDW 13.3 (11.5-15.5) % Plt Count 332 (150-450) k/uL MPV 7.3 Neutrophils % 53 % Lymphocytes % 34 % Monocytes % 5 % Eosinophils % 5 % Basophils % 1 % Neutrophils # 5.1 (1.3-7.7) k/uL Lymphocytes # 3.2 (1.0-4.8) k/uL Monocytes # 0.5 (0-1.0) k/uL Eosinophils # 0.5 (0-0.7) k/uL Basophils # 0.1 (0-0.2) k/uL PT 9.9 (9.0-12.0) sec INR 0.9 (<1.2) APTT 24.6 (22.0-30.0) sec D-Dimer 0.85 H (<0.60) mg/L FEU Sodium 141 (137-145) mmol/L Potassium 3.9 (3.5-5.1) mmol/L Chloride 104 (98-107) mmol/L Carbon Dioxide 34 H (22-30) mmol/L Anion Gap 3 mmol/L BUN 11 (7-17) mg/dL Creatinine 0.51 L (0.52-1.04) mg/dL Est GFR (CKD-EPI)AfAm >90 (>60 ml/min/1.73 sqM) Est GFR (CKD-EPI)NonAf >90 (>60 ml/min/1.73 sqM) Glucose 96 (74-99) mg/dL Calcium 8.5 (8.4-10.2) mg/dL Magnesium 1.8 (1.6-2.3) mg/dL Total Bilirubin 0.4 (0.2-1.3) mg/dL AST 21 (14-36) U/L ALT 20 (4-34) U/L Alkaline Phosphatase 94 (38-126) U/L Troponin I (0.000-0.034) ng/mL NT-Pro-B Natriuret Pep pg/mL Total Protein 5.9 L (6.3-8.2) g/dL Albumin 3.2 L (3.5-5.0) g/dL 04/17/22 04/17/22 Range/Units 07:48 07:48 WBC (3.8-10.6) k/uL RBC (3.80-5.40) m/uL Hgb (11.4-16.0) gm/dL Hct (34.0-46.0) % MCV (80.0-100.0) fL MCH (25.0-35.0) pg MCHC (31.0-37.0) g/dL RDW (11.5-15.5) % Plt Count (150-450) k/uL MPV Neutrophils % % Lymphocytes % % Monocytes % % Eosinophils % % Basophils % % Neutrophils # (1.3-7.7) k/uL Lymphocytes # (1.0-4.8) k/uL Monocytes # (0-1.0) k/uL Eosinophils # (0-0.7) k/uL Basophils # (0-0.2) k/uL PT (9.0-12.0) sec INR (<1.2) APTT (22.0-30.0) sec D-Dimer (<0.60) mg/L FEU Sodium (137-145) mmol/L Potassium (3.5-5.1) mmol/L Chloride (98-107) mmol/L Carbon Dioxide (22-30) mmol/L Anion Gap mmol/L BUN (7-17) mg/dL Creatinine (0.52-1.04) mg/dL Est GFR (CKD-EPI)AfAm (>60 ml/min/1.73 sqM) Est GFR (CKD-EPI)NonAf (>60 ml/min/1.73 sqM) Glucose (74-99) mg/dL Calcium (8.4-10.2) mg/dL Magnesium (1.6-2.3) mg/dL Total Bilirubin (0.2-1.3) mg/dL AST (14-36) U/L ALT (4-34) U/L Alkaline Phosphatase (38-126) U/L Troponin I <0.012 (0.000-0.034) ng/mL NT-Pro-B Natriuret Pep 374 pg/mL Total Protein (6.3-8.2) g/dL Albumin (3.5-5.0) g/dL - EKG Data -: EKG Interpreted by Me EKG Comments: 12-lead Electrocardiogram Interpretation Note EKG was reviewed and interpreted by myself. 12-lead ECG performed at 0834 is interpreted by me as revealing normal sinus rhythm at a rate of 74 beats per minute. [place] is normal. [place] interval is 150 ms, QRS duration is 85 ms, QTc is 455 ms. There are intermittent PVCs There were no ST or T wave abnormalities to suggest myocardial ischemia or injury. R wave progression across the precordium was satisfactory. By my interpretation this EKG is non-diagnostic for acute ischemia. When compared with EKG from September 2021, no significant change. Disposition Clinical Impression: Dependent edema Disposition: HOME SELF-CARE Condition: Good Instructions (If sedation given, give patient instructions): Leg Edema (ED) Is patient prescribed a controlled substance at d/c from ED?: No Referrals: Jf Cruz DO [Primary Care Provider] - 1-2 days Time of Disposition: 10:25
[2022-04-17 08:30] LABS: Basophils # (A) 0.1 k/uL (0-0.2); Basophils % (A) 1 %; Eosinophils # (A) 0.5 k/uL (0-0.7); Eosinophils % (A) 5 %; HCT 39.7 % (34.0-46.0); HGB 13.1 gm/dL (11.4-16.0); Lymphocytes # (A) 3.2 k/uL (1.0-4.8); Lymphocytes % (A) 34 %; MCH 31.5 pg (25.0-35.0); MCV 95.4 fL (80.0-100.0); Mean Platelet Volume 7.3; Monocytes # (A) 0.5 k/uL (0-1.0); Monocytes % (A) 5 %; Neutrophils # (A) 5.1 k/uL (1.3-7.7); Neutrophils % (A) 53 %; Platelet Count 332 k/uL (150-450); RBC 4.17 m/uL (3.80-5.40); RDW 13.3 % (11.5-15.5); WBC 9.5 k/uL (3.8-10.6)
[2022-04-17 08:48] LABS: ALT 20 U/L (4-34); AST 21 U/L (14-36); African American GFR (CKD) >90 (>60 ml/min/1.73 sqM); Albumin 3.2 g/dL (3.5-5.0); Alkaline Phosphatase 94 U/L (38-126); Anion Gap 3 mmol/L; Blood Urea Nitrogen 11 mg/dL (7-17); Calcium 8.5 mg/dL (8.4-10.2); Carbon Dioxide 34 mmol/L (22-30); Chloride 104 mmol/L (98-107); Glucose 96 mg/dL (74-99); Magnesium 1.8 mg/dL (1.6-2.3); Non-African American GFR(CKD) >90 (>60 ml/min/1.73 sqM); Potassium 3.9 mmol/L (3.5-5.1); Sodium 141 mmol/L (137-145); Total Bilirubin 0.4 mg/dL (0.2-1.3); Total Protein 5.9 g/dL (6.3-8.2)
[2022-04-17 08:50] LABS: INR 0.9 (<1.2); Partial Thromboplastin Time 24.6 sec (22.0-30.0); Prothrombin Time 9.9 sec (9.0-12.0)
--- NOTE | 2022-04-17 09:00 | XR ---
EXAMINATION TYPE: XR chest 2V DATE OF EXAM: 04/17/2022 COMPARISON: Chest x-ray September 14, 2021 HISTORY: Difficulty in breathing. TECHNIQUE: Frontal and lateral views of the chest are obtained. FINDINGS: There is chronic parenchymal changes bilaterally without suspicious focal air space opacit y, pleural effusion, or pneumothorax seen. The cardiac silhouette size is stable and upper limits of normal. Anterior fusion plate in the cervical spine is redemonstrated. Overlying EKG leads are redem onstrated. IMPRESSION: No acute cardiopulmonary process. No significant change from prior.
[2022-04-17] MEDS ORDERED: oxyCODONE-APAP 10-325MG 1 EACH TAB PO STA (09:25)
--- NOTE | 2022-04-17 10:05 | US ---
EXAMINATION TYPE: US venous doppler duplex LE DATE OF EXAM: 04/17/2022 9:43 AM COMPARISON: NONE CLINICAL HISTORY: BLLE edema, eval for dvt. EDEMA SIDE PERFORMED: Bilateral TECHNIQUE: The lower extremity deep venous system is examined utilizing real time linear array sonog barbara with graded compression, doppler sonography and color-flow sonography. VESSELS IMAGED: Common Femoral Vein Deep Femoral Vein Greater Saphenous Vein * Femoral Vein Popliteal Vein Small Saphenous Vein * Proximal Calf Veins (* superficial vessels) Right Leg: Negative for DVT Left Leg: Negative for DVT. The left popliteal region is a 1.2 x 1.9 x 4.9 cm cystic structure. IMPRESSION: 1. Bilateral lower extremity ultrasound negative for deep venous thrombosis. 2. Left popliteal cyst.
--- NOTE | 2022-04-17 10:24 | CT ---
EXAMINATION TYPE: CT chest angio for PE DATE OF EXAM: 04/17/2022 COMPARISON: Elevated d-dimer HISTORY: Leg swelling, redness and painful CT DLP: 674.1 mGycm Automated exposure control for dose reduction was used. CONTRAST: CT Chest for pulmonary embolism performed with with IV Contrast, patient injected with 100 mL of Isov ue 370. FINDINGS: LUNGS: The lungs are grossly clear, there is no concerning parenchymal mass or nodule identified. T here is no pleural effusion or pneumothorax seen. The tracheobronchial tree is patent. MEDIASTINUM: There is artifact obscuring portions of the origin of the right upper lobe arterial bran ch which is nondiagnostic. Remaining portion of the visualized vasculature demonstrates Satisfactory enhancement of the pulmonary artery and its branches, there is no CT evidence for pulmonary embolism. There are no greater than 1 cm hilar or mediastinal lymph nodes. There is shotty hilar and mediast inal adenopathy. No pericardial effusion is seen. Heart size is upper limits of normal to mildly enl arged. Aorta of normal caliber. OTHER: Hypertrophic and degenerative changes spine. 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 Postsurgical changes overlying the cervical spine suggests previous anterior fusion. Multilevel severe degenerative disc disease and hypertrophic villa ges of the spine. IMPRESSION: 1. Artifact obscures the proximal aspect of the right upper lobe pulmonary arterial branch. Remaining portion of the visualized vasculature has a normal appearance with no diagnostic evidence of urinary embolism no central pulmonary embolus. Correlate clinically.
[2022-04-17 11:10] VITALS: BP 131/50; PULSE 59
== END 2022-04-17 11:09 | disposition home or self-care (01) ==
LOC: EC 04:58
DX: M79.89 Other specified soft tissue disorders (principal); I10 Essential (primary) hypertension; E78.5 Hyperlipidemia, unspecified; J44.9 Chronic obstructive pulmonary disease, unspecified; E07.9 Disorder of thyroid, unspecified; F17.200 Nicotine dependence, unspecified, uncomplicated; Z86.16 Personal history of COVID-19; Z88.0 Allergy status to penicillin; Z88.2 Allergy status to sulfonamides; Z79.82 Long term (current) use of aspirin; Z79.890 Hormone replacement therapy; Z88.8 Allergy status to other drugs, medicaments and biological substances
CPT/HCPCS: 36415; 93005; 85379; 83880; 80053; 83735; 84484; 85025; 85610; 85730; 71046; 93970; 71275; 99284; Q9967

== ENCOUNTER → 2022-09-19 | Outpatient (CLI) | payer MEDICARE, OTHER ==
--- NOTE | 2022-09-19 18:02 | XR ---
EXAMINATION TYPE: XR knee complete LT DATE OF EXAM: 09/19/2022 COMPARISON: 01/02/2016 HISTORY: 61-year-old female left knee pain after fall TECHNIQUE: 3 views FINDINGS: Mild tricompartmental degenerative spurring. Small knee joint effusion. Extensor mechanism appears in tact. Bone island within the lateral tibial plateau. No acute fracture, subluxation, dislocation seen . IMPRESSION: Mild tricompartmental degenerative change. A small knee joint effusion is noted. No acute osseous abn ormality seen. If concern for internal derangement, MRI can be performed.
== END | disposition home or self-care (01) ==
LOC: RADXRYALE 14:46
PROVIDERS: ATTEND Physician Assistant
DX: M17.12 Unilateral primary osteoarthritis, left knee (principal); M25.462 Effusion, left knee; W18.30XA Fall on same level, unspecified, initial encounter

== ENCOUNTER 2024-06-08 11:45 | Emergency (ER) | payer MEDICARE, OTHER ==
--- NOTE | 2024-06-08 12:23 | ED ---
General Adult HPI - General Chief complaint: Eye Problems Stated complaint: Right eye complications Time Seen by Provider: 06/08/24 12:00 Source: patient, RN notes reviewed, old records reviewed Mode of arrival: ambulatory Limitations: no limitations - History of Present Illness Initial comments: This is a 63-year-old female with a past medical history significant for brain biopsy and a CVA leaving with some facial droop on right side of her face. Lincoln feliz states that since Friday she has been having eye pain and a headache and some swelling around the eye. Patient states this is gotten slightly worse since Friday but she has been busy so she has not been able to make it in. Patient denies any change in vision. Patient states that eye is normally blurred and continues to be blurred. Patient denies any trauma to the eye. States she has been anxious because of the situation and was feeling a little short of breath but she is not sure if it is just her anxiety. - Related Data Home Medications Medication Instructions Recorded Confirmed Aspirin [Adult Low Dose Aspirin EC] 81 mg PO DAILY 07/28/17 07/09/22 Clopidogrel [Plavix] 75 mg PO DAILY 07/28/17 07/09/22 Gabapentin [Neurontin] 1,200 mg PO TID 07/28/17 07/09/22 Levothyroxine Sodium [Synthroid] 150 mcg PO QAM 07/28/17 07/09/22 Torsemide [Demadex] 20 mg PO TID 07/28/17 07/09/22 oxyCODONE-APAP 10-325MG [Percocet 1 - 2 tab PO Q4-6H PRN 07/28/17 07/09/22 10-325 mg] Atorvastatin [Lipitor] 40 mg PO HS 08/27/21 07/09/22 Potassium Chloride [Klor-Con M20] 20 meq PO DAILY 08/27/21 07/09/22 nadoloL [Corgard] 20 mg PO BID 08/29/21 07/09/22 Previous Rx's Medication Instructions Recorded Levofloxacin [Levaquin] 750 mg PO DAILY #10 tab 06/08/24 Allergies Allergy/AdvReac Type Severity Reaction Status Date / Time banana Allergy Rash/Hives Verified 06/08/24 12:01 codeine Allergy Swelling Verified 06/08/24 12:01 Penicillins Allergy Swelling Verified 06/08/24 12:01 Sulfa (Sulfonamide Allergy Swelling Verified 06/08/24 12:01 Antibiotics) Review of Systems ROS Statement: Those systems with pertinent positive or pertinent negative responses have been documented in the HPI. ROS Other: All systems not noted in ROS Statement are negative. 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 Left shoulder problems. Hypothyroidism. PAST MEDICAID SERVICE COORDINATOR HISTORY: She has no history of STDs. She did have a cryotherapy of the cervix at age 19. History of Any Multi-Drug Resistant Organisms: None Reported Past Surgical History: Section, Tonsillectomy Additional Past Surgical History / Comment(s): Biopsy of brain, neck fusion, D&C, Exploratory Lap X2, multiple right eye surgeries. Sinus surgery. Additional Past Anesthesia/Blood Transfusion Reaction / Comment(s): Mucous plug in recovery X1, woke up with difficulty breathing. Past Psychological History: Anxiety, Depression Smoking Status: Current every day smoker Past Alcohol Use History: None Reported Past Drug Use History: None Reported - Past Family History Father Family Medical History: Cancer Additional Family Medical History / Comment(s): Lung cancer. . Mother Additional Family Medical History / Comment(s): Sinus problems. Maternal grandmother had breast cancer. General Exam - General Exam Comments Initial Comments: GENERAL: Patient is well-developed and well-nourished. Patient is nontoxic and well- hydrated and is in no acute distress. ENT: Neck is soft and supple. No significant lymphadenopathy is noted. Oropharynx is clear. Moist mucous membranes. Neck has full range of motion without eliciting any pain. EYES: Eyelid is thickened and she states that is where she has a gold bar. Patient's pupil is dilated and nonreactive on the right. There is some swelling in the lower eyelid as well. PULMONARY: Unlabored respirations. Good breath sounds bilaterally. No audible rales rhonchi or wheezing was noted. CARDIOVASCULAR: There is a regular rate and rhythm without any murmurs gallops or rubs. ABDOMEN: Soft and nontender with normal bowel sounds. SKIN: Skin is clear with no lesions or rashes and otherwise unremarkable. NEUROLOGIC: Patient is alert and oriented x3. Cranial nerves II through XII are grossly intact. Motor and sensory are also intact. Normal speech, volume and content. Symmetrical smile. MUSCULOSKELETAL: Normal extremities with adequate strength and full range of motion. No lower extremity swelling or edema. No calf tenderness. LYMPHATICS: No significant lymphadenopathy is noted PSYCHIATRIC: Normal psychiatric evaluation. Limitations: no limitations Course Vital Signs 06/08/24 06/08/24 06/08/24 11:54 12:14 12:30 Temperature 99.0 F 100.3 F H Pulse Rate 65 65 64 Respiratory 18 16 18 Rate Blood Pressure 141/79 125/53 96/52 O2 Sat by Pulse 94 L 96 94 L Oximetry 06/08/24 06/08/24 06/08/24 13:00 14:45 16:05 Temperature Pulse Rate 57 L 67 68 Respiratory 18 18 18 Rate Blood Pressure 123/62 98/79 148/66 O2 Sat by Pulse 93 L 97 96 Oximetry Medical Decision Making - Medical Decision Making Was pt. sent in by a medical professional or institution (, PA, SWAGING MACHINE OPERATOR, urgent care, hospital, or care home...) When possible be specific @ -No Did you speak to anyone other than the patient for history (EMS, parent, family, police, friend...)? What history was obtained from this source @ -No Did you review nursing and triage notes (agree or disagree)? Why? @ -I reviewed and agree with nursing and triage notes Were old charts reviewed (outside hosp., previous admission, EMS record, old EKG, old radiological studies, urgent care reports/EKG's, care home records)? Report findings @ -No old charts were reviewed Differential Diagnosis? @ -Glaucoma, brainstem, stroke, eye infection, this is not an all-inclusive list EKG interpreted by me (3pts min.). @ -As above X-rays interpreted by me (1pt min.). @ -None done CT interpreted by me (1pt min.). @ -CT brain shows no acute normality however the maxillary sinus on the right did show signs of acute sinusitis. CT angio of the head neck showed no acute abnormality U/S interpreted by me (1pt. min.). @ -None done What testing was considered but not performed or refused? (CT, X-rays, U/S, labs)? Why? @ -None What meds were considered but not given or refused? Why? @ -None Did you discuss the management of the patient with other professionals (professionals i.e. , PA, SWAGING MACHINE OPERATOR, lab, RT, psych nurse, social work specialist, reel hooker, teacher, revenue officer, welfare case worker)? Give summary @ -I spoke with Dr. Buitrago and gave him the visual acuities as well as the physical exam and pressures of the eye and he want to see the patient in the office tomorrow. Was smoking cessation discussed for >3mins.? @ -No Was critical care preformed (if so, how long)? @ -No Were there social determinants of health that impacted care today? How? (Homelessness, low income, unemployed, alcoholism, drug addiction, transportation, low edu. Level, literacy, decrease access to med. care, penitentiary, rehab)? @ -No Was there de-escalation of care discussed even if they declined (Discuss DNR or withdrawal of care, Hospice)? DNR status @ -No What co-morbidities impacted this encounter? (DM, HTN, Smoking, COPD, CAD, Cancer, CVA, ARF, Chemo, Hep., AIDS, mental health diagnosis, sleep apnea, morbid obesity)? @ -None Was patient admitted / discharged? Hospital course, mention meds given and route, prescriptions, significant lab abnormalities, going to OR and other pertinent info. @ -Patient's pressure in the right eye was 25. I fluorescein and looked at the eye there was no abrasion noted. Patient's extraocular motion was intact. Patient had no pupillary reflex whether the light was shined ipsilateral c ontralateral eye. I spoke to the patient about having sinusitis and she stated she has been having issues with that for quite a while much greater than the last 2 weeks Undiagnosed new problem with uncertain prognosis? @ -No Drug Therapy requiring intensive monitoring for toxicity (Heparin, Nitro, Insulin, Cardizem)? @ -No Were any procedures done? @ -No Diagnosis/symptom? @ - sinusitis maxillary Acute, or Chronic, or Acute on Chronic? @ -Acute on chronic Uncomplicated (without systemic symptoms) or Complicated (systemic symptoms)? @ -Uncomplicated Side effects of treatment? @ -No Exacerbation, Progression, or Severe Exacerbation? @ -No Poses a threat to life or bodily function? How? (Chest pain, [place], [place], pneumonia, PE, COPD, DKA, ARF, appy, cholecystitis, CVA, Diverticulitis, Homicidal, Suicidal, threat to staff... and all critical care pts) @ -No - Lab Data Result diagrams: 06/08/24 12:21 06/08/24 13:18 Lab Results 06/08/24 06/08/24 06/08/24 Range/Units 12:21 12:21 13:18 WBC 9.4 (3.8-10.6) k/uL RBC 4.28 (3.80-5.40) m/uL Hgb 13.4 (11.4-16.0) gm/dL Hct 40.8 (34.0-46.0) % MCV 95.4 (80.0-100.0) fL MCH 31.4 (25.0-35.0) pg MCHC 32.9 (31.0-37.0) g/dL RDW 13.0 (11.5-15.5) % Plt Count 324 (150-450) k/uL MPV 6.8 Neutrophils % 66 % Lymphocytes % 22 % Monocytes % 5 % Eosinophils % 3 % Basophils % 1 % Neutrophils # 6.2 (1.3-7.7) k/uL Lymphocytes # 2.1 (1.0-4.8) k/uL Monocytes # 0.5 (0-1.0) k/uL Eosinophils # 0.3 (0-0.7) k/uL Basophils # 0.1 (0-0.2) k/uL Sodium 137 (137-145) mmol/L Potassium 3.9 (3.5-5.1) mmol/L Chloride 99 (98-107) mmol/L Carbon Dioxide 33 H (22-30) mmol/L Anion Gap 5 mmol/L BUN 13 (7-17) mg/dL Creatinine 0.69 (0.52-1.04) mg/dL Est GFR (CKD-EPI)AfAm >90 (>60 ml/min/1.73 sqM) Est GFR (CKD-EPI)NonAf >90 (>60 ml/min/1.73 sqM) Glucose 96 (74-99) mg/dL Calcium 8.6 (8.4-10.2) mg/dL Total Bilirubin 0.8 (0.2-1.3) mg/dL AST 21 (14-36) U/L ALT 17 (4-34) U/L Alkaline Phosphatase 88 (38-126) U/L Total Protein 6.4 (6.3-8.2) g/dL Albumin 3.7 (3.5-5.0) g/dL Influenza Type A (PCR) Not Detected (Not Detectd) Influenza Type B (PCR) Not Detected (Not Detectd) RSV (PCR) Not Detected (Not Detectd) SARS-CoV-2 (PCR) Not Detected (Not Detectd) Disposition Clinical Impression: Chronic maxillary sinusitis Disposition: HOME SELF-CARE Condition: Good Instructions (If sedation given, give patient instructions): Sinusitis (ED) Additional Instructions: Patient should call Dr. Buitrago's office tomorrow and be seen by Dr. Buitrago. Prescriptions: Levofloxacin [Levaquin] 750 mg PO DAILY #10 tab Is patient prescribed a controlled substance at d/c from ED?: No Referrals: Jf Cruz DO [Primary Care Provider] - 1-2 days
[2024-06-08 12:28] LABS: Basophils # (A) 0.1 k/uL (0-0.2); Basophils % (A) 1 %; Eosinophils # (A) 0.3 k/uL (0-0.7); Eosinophils % (A) 3 %; HCT 40.8 % (34.0-46.0); HGB 13.4 gm/dL (11.4-16.0); Lymphocytes # (A) 2.1 k/uL (1.0-4.8); Lymphocytes % (A) 22 %; MCH 31.4 pg (25.0-35.0); MCHC 32.9 g/dL (31.0-37.0); MCV 95.4 fL (80.0-100.0); Mean Platelet Volume 6.8; Monocytes # (A) 0.5 k/uL (0-1.0); Monocytes % (A) 5 %; Neutrophils # (A) 6.2 k/uL (1.3-7.7); Neutrophils % (A) 66 %; Platelet Count 324 k/uL (150-450); RBC 4.28 m/uL (3.80-5.40); WBC 9.4 k/uL (3.8-10.6)
[2024-06-08] MEDS: ACETAMINOPHEN TAB 500 MG TAB PO STA (12:30)
[2024-06-08] MEDS: PROPARACAINE 0.5% OPHTH DROPS 15 ML BTL RIGHT EYE STA (12:31)
[2024-06-08] MEDS: FLUORESCEIN STRIPS 1 MG STRIP RIGHT EYE ONE (12:37)
[2024-06-08 12:40] VITALS: TEMP 100.3
[2024-06-08 13:03] LABS: Influenza A Not Detected (Not Detectd); Influenza B Not Detected (Not Detectd); RSV Not Detected (Not Detectd)
[2024-06-08 13:28] VITALS: RESP 18
[2024-06-08 13:44] LABS: ALT 17 U/L (4-34); AST 21 U/L (14-36); African American GFR (CKD) >90 (>60 ml/min/1.73 sqM); Albumin 3.7 g/dL (3.5-5.0); Alkaline Phosphatase 88 U/L (38-126); Anion Gap 5 mmol/L; Blood Urea Nitrogen 13 mg/dL (7-17); Calcium 8.6 mg/dL (8.4-10.2); Carbon Dioxide 33 mmol/L (22-30); Chloride 99 mmol/L (98-107); Glucose 96 mg/dL (74-99); Non-African American GFR(CKD) >90 (>60 ml/min/1.73 sqM); Potassium 3.9 mmol/L (3.5-5.1); Sodium 137 mmol/L (137-145); Total Bilirubin 0.8 mg/dL (0.2-1.3); Total Protein 6.4 g/dL (6.3-8.2)
--- NOTE | 2024-06-08 14:21 | XR ---
EXAMINATION TYPE: XR chest 2V DATE OF EXAM: 06/08/2024 2:15 PM COMPARISON: Chest radiographs from CLINICAL INDICATION: Female, 63 years old with history of Difficulty breathing ; TECHNIQUE: XR chest 2V Frontal and lateral views of the chest. FINDINGS: Lungs/Pleura: There is no evidence of pleural effusion, focal consolidation, or pneumothorax. Pulmonary vascularity: Unremarkable. Heart/mediastinum: Cardiomediastinal silhouette is unremarkable. Musculoskeletal: No acute osseous pathology. There is fixation hardware in the lower cervical spine. Other findings: None IMPRESSION: No acute cardiopulmonary disease/process. [facility], , 06/08/2024 2:19 PM
--- NOTE | 2024-06-08 14:24 | CT ---
EXAMINATION TYPE: CT brain wo con DATE OF EXAM: 06/08/2024 COMPARISON: 09/14/2021 CLINICAL INDICATION: Female, 63 years old with history of Visual disturbance headache; PHH, DIZZY CT DLP: 1147 mGycm Automated exposure control for dose reduction was used. FINDINGS: The ventricles, basal cisterns and sulci over convexities are within normal limits for the patient's age and there is no mass effect or shift in midline structures. There is a remote lacunar infarct in the right basal ganglia and right frontal white matter. There is no acute intra or extra-axial hemorrhage. There is stable moderate to marked left cerebellar atrophy. There are marked chronic inflammatory changes in the maxillary ethmoid, sphenoid and frontal sinuses. . There is a suggestion of air-fluid level in the right maxillary sinus raises the question of a sup erimposed acute sinusitis. The mastoid air cells are well aerated IMPRESSION: 1. no acute bleed or mass effect. 2. Remote lacunar infarcts in the right basal ganglia and right frontal white matter. 3. marked chronic pansinusitis with possible acute sinusitis involving the right maxillary sinus. 4. Stable moderate to marked left cerebellar atrophy [facility], , 06/08/2024 2:21 PM
--- NOTE | 2024-06-08 14:42 | CT ---
EXAMINATION TYPE: CT angio head neck DATE OF EXAM: 06/08/2024 COMPARISON: None CLINICAL INDICATION: Female, 63 years old with history of Headache, dilated and fixed pupil; ANGELAHANTIONETTEY, FIXED/DILATED PUPIL TECHNIQUE: CTA scan of the head and neck is performed with IV Contrast, patient injected with 65 mL of Isovue 370, axial images are obtained, coronal and sagittal reformatted images are reviewed. 3D re constructed images are created on an independent workstation and reviewed. CT DLP: 543.[address] CTDI: mGy Automated exposure control for dose reduction was used. NASCET criteria was used in interpretation of this exam? FINDINGS: The brachiocephalic origins are widely patent and no significant stenosis. There is no significant stenosis of the common or internal carotid arteries within the neck. There is no stenosis of the vertebral arteries. Intracranially, there is no stenosis, segmental occlusion, sizable aneurysm sac or vascular malformat ion. IMPRESSION:. No significant abnormality seen. NASCET criteria was used in interpretation of this exam? [facility], Workstation: [email or web address] 06/08/2024 2:40 PM
[2024-06-08 16:09] VITALS: BP 148/66; PULSE 68
[2024-06-08] MEDS: HYDROmorphone 0.5 MG/0.5 ML SYRINGE IVP STA (16:09)
== END 2024-06-08 16:38 | disposition home or self-care (01) ==
LOC: EC 11:45
DX: J32.0 Chronic maxillary sinusitis (principal); F17.200 Nicotine dependence, unspecified, uncomplicated; Z88.0 Allergy status to penicillin; Z88.2 Allergy status to sulfonamides; Z91.018 Allergy to other foods; Z88.5 Allergy status to narcotic agent
CPT/HCPCS: 36415; 80053; 85652; 85025; 87636; 71046; 70496; 70450; 70498; 99284; 96374; J1171; Q9967

== ENCOUNTER → 2024-11-19 | Outpatient (CLI) | payer MEDICARE ==
--- NOTE | 2024-11-19 08:53 | US ---
EXAMINATION TYPE: US pelvic complete DATE OF EXAM: 11/19/2024 COMPARISON: NONE CLINICAL INDICATION: Female, 64 years old with history of R10.84 ABD PAIN, K21.9 GERD; patient states pelvic cramping, after eating she has diarrhea, postmenopausal, no bleeding TECHNIQUE: TA. Transabdominal grayscale sonographic images of the pelvis were acquired. Patient took 30 more cat te to drink water and fill bladder. Patient on Lasix and was full at time of exam Doppler imaging: Not performed. FINDINGS: Date of LMP: 10+ years ago EXAM MEASUREMENTS: Uterus: 6.4 x 3.9 x 3.7 cm Endometrial Stripe: undiscernible Right Ovary: not seen due to bowel gas and atrophy Left Ovary: not seen due to bowel gas and atrophy 1. Uterus: Anteverted. Limited views, probably due to large patient body habitus. No gross abnorma lity. 2. Endometrium: Unable to clearly delineate. 3. Right Ovary: not seen 4. Left Ovary: not seen 5. Bilateral Adnexa: wnl 6. Posterior cul-de-sac: wnl IMPRESSION: 1. Limited assessment which seems to be due to body habitus. The uterus is anteverted. Unable to lynda rly delineate the endometrial stripe. 2. Unable to visualize either ovary. [facility], , 11/19/2024 8:50 AM
--- NOTE | 2024-11-19 08:55 | US ---
EXAMINATION TYPE: US abdomen complete DATE OF EXAM: 11/19/2024 COMPARISON: NONE CLINICAL INDICATION: Female, 64 years old with history of R10.84 ABD PAIN, K21.9 GERD; Abd pain for a few weeks, known GERD TECHNIQUE: Grayscale and color Doppler imaging of the abdomen was performed. FINDINGS: EXAM MEASUREMENTS: Liver Length: 19.7 cm Gallbladder Wall: 0.2 cm CBD: 6.6 mm, color Doppler imaging was utilized to isolate the common bile duct for measurement. Spleen: 12.3 cm Right Kidney: 10.1 x 5.4 x 5.2 cm Left Kidney: 10.9 x 4.4 x 5.7 cm METEOROLOGIST IN CHARGE NOTES: bowel gas limits study Pancreas: wnl Liver: enlarged. However, no focal lesion seen and the overall echogenicity appears fairly normal. Gallbladder: No shadowing stones, abnormal distention, wall thickening, or surrounding fluid. Evidence for sonographic Redding's sign: no CBD: wnl Spleen: wnl Right Kidney: 1.8cm midpole stone, possibly extending into the collecting system. No hydronephrosis. Left Kidney: wnl, No hydronephrosis, calculi or masses seen Upper IVC: wnl Abd Aorta: wnl IMPRESSION: 1. Eccentrically located 1.8 cm shadowing stone in the right kidney, possibly extending into the amanda ecting system. No hydronephrosis at this time. 2. Bile duct borderline to mildly dilated at 6.6 mm. This may be normal given patient's age. Correlat e with alkaline phosphatase and bilirubin levels. [facility], Workstation: [id number], 11/19/2024 8:53 AM
== END | disposition home or self-care (01) ==
LOC: RADUSWWP 07:19
PROVIDERS: ATTEND Family Medicine
DX: K21.9 Gastro-esophageal reflux disease without esophagitis (principal); N20.0 Calculus of kidney
CPT/HCPCS: 76700; 76856

== ENCOUNTER → 2024-11-29 | Outpatient (CLI) | payer MEDICARE ==
--- NOTE | 2024-11-29 12:53 | XR ---
EXAMINATION TYPE: XR KUB DATE OF EXAM: 11/29/2024 12:27 PM COMPARISON: None. CLINICAL INDICATION: Female, 64 years old with history of N20.0 CALCULUS OF KIDNEY, TECHNIQUE: Single view of the abdomen. FINDINGS: Right renal calculi: None Visualized. Limited evaluation given overlying bowel content. Right ureteral calculi: None Visualized. Left renal calculi: None Visualized. Left ureteral calculi: None Visualized. Pelvic calcifications: Yes Bowel gas pattern is unremarkable. No free air. No mass effects. IMPRESSION: 1. [facility], , 11/29/2024 12:50 PM
== END | disposition home or self-care (01) ==
LOC: RADXRMAIN 12:11
PROVIDERS: ATTEND Family Medicine
DX: N20.0 Calculus of kidney (principal)
CPT/HCPCS: 74018

== ENCOUNTER → 2024-12-02 | Outpatient (CLI) | payer MEDICARE ==
--- NOTE | 2024-12-02 14:09 | CT ---
EXAMINATION TYPE: CT abdomen pelvis wo con DATE OF EXAM: 12/02/2024 COMPARISON: None CLINICAL INDICATION: Female, 64 years old with history of N20.0 calculus of kidney; PHH, RT Side kidn ey stone TECHNIQUE: CT scan of the abdomen and pelvis is performed without oral or IV contrast. CT DLP: [address] CTDI: mGy Automated exposure control for dose reduction was used. FINDINGS: Within the limitations of a non-contrast study, the following observations are made. The lungs are clear. Gallbladder is normal and there is no gallstone, wall thickening, pericholecystic fluid or distention . There is no biliary ductal dilatation. There is no organomegaly of the liver, pancreas, spleen or adrenal glands. There are 2 nonobstructing right renal calcifications largest of which is 2.1 cm. There is a second s maller 4 mm right renal calcification. There is a nonobstructing punctate left renal calcification. The caliber of the abdominal aorta is normal and there is no retroperitoneal adenopathy or hemorrhage . The bowel loops are normal in caliber is no evidence of obstruction. No inflammatory changes are iden tified in the mesentery and there is no free intraperitoneal air or fluid. There is no pelvic mass, free fluid, abscess or adenopathy. There are small calcifications in the [place] likely indicating calcified fibroids. The osseous structures and soft tissues are unremarkable. IMPRESSION: Nonobstructing bilateral renal calcifications as described above. [facility], , 12/02/2024 2:06 PM
== END | disposition home or self-care (01) ==
LOC: RADCTMAIN 13:23
PROVIDERS: ATTEND Urology
DX: N20.0 Calculus of kidney (principal); N28.89 Other specified disorders of kidney and ureter
CPT/HCPCS: 74176